=== PATIENT | male | born 2000 | race African-American/Black ===

== ENCOUNTER 2020-08-03 23:13 | Emergency (ER) | payer MEDICAID ==
[~2020-08-03] VITALS: Ht 180.3 cm; Wt 60.1 kg
[~2020-08-03 23:13] MED LIST: ALBUPOW26; EPI PEN; FLU05NSL
[2020-08-03 23:43] VITALS: BP 104/65
[2020-08-04] MEDS ORDERED: IOHEXOL 300 MG/ML 100ML BOTTLE IJ ONE (00:08)
== END 2020-08-04 01:36 | disposition left against medical advice (07) ==
LOC: ER 23:15
DX: R10.9 Unspecified abdominal pain (principal); Z53.21 Procedure and treatment not carried out due to patient leaving prior to being seen by health care provider